=== PATIENT | female | born 1935 | race Caucasian/White ===

== ENCOUNTER 2023-12-20 11:43 | Emergency (ER) | payer MEDICARE ==
[~2023-12-20] VITALS: Ht 160 cm; Wt 43.6 kg
[~2023-12-20 11:43] MED LIST: AMOXICILLIN 50500 MG PO; ASPI325T6 PO; CLONAZEPAM PO; COZAAR 50MG50 MG/TAB PO; DUO-KAPS1 CAP PO; HYZAAR; KLONOPIN WAFE0.25 MG PO; LISINOPRIL/HCTZ1 TA1 PO; MIRTAZAPINE7.5 MG PO; OSCAL 500 TAB500 MG PO; PAXIL 20MG20 MG PO; TYLENOL 325MG325 MG PO; VESICARE 5MG5 MG PO; VITAMIN C500 MG PO
[2023-12-20 11:46] VITALS: TEMP 97.2
[2023-12-20 12:49] LABS: BASO % 0.2 % (0.0-2.0); EOS # 0.1 K/mm3 (0.0-0.7); EOS % 1.3 % (0.0-4.0); GRAN # 7.4 K/mm3 (1.4-6.5); GRAN % 75.2 % (42.2-75.2); LYMPH # 1.9 K/mm3 (1.2-3.4); LYMPH % 19.2 % (20.0-51.0); MEAN CELL VOLUME 96 fl (80.0-100.0); MEAN CORPUSCULAR HEMOGLOBIN 32 pg (27-31); MEAN CORPUSCULAR HGB CONC 34 g/dl (33.0-37.0); MEAN PLATELET VOLUME 9.2 fl (7.4-10.4); MONO # 0.4 K/mm3 (0.1-0.6); MONO % 3.8 % (1.7-9.3); PLATELET COUNT 248 K/mm3 (130-400); RED BLOOD COUNT 3.72 M/mm3 (4.10-5.30); REDCELL DISTRIBUTION WIDTH-CV 13.3 % (11.5-14.5)
[2023-12-20 12:50] LABS: HEMATOCRIT 35.8 % (37.0-47.0)
[2023-12-20 13:01] LABS: ALANINE AMINOTRANSFERASE < 6 U/L (0-55); ALBUMIN 3.1 g/dL (3.4-4.8); ALKALINE PHOSPHATASE 77 U/L (40-150); ANION GAP 10 mmol/L (7-16); AST,SGOT 13 U/L (5-34); BILIRUBIN,TOTAL 0.2 mg/dL (0.2-1.2); BLOOD UREA NITROGEN 28 mg/dL (10-20); CALCIUM 9.9 mg/dL (8.4-10.2); CHLORIDE 107 mEq/L (98-107); CREATININE, serum 1.16 mg/dL (0.57-1.11); GLUCOSE 126 mg/dL (70-99); POTASSIUM 3.3 mEq/L (3.5-4.5); SODIUM 139 mEq/L (136-145); TOTAL PROTEIN 6.3 g/dl (6.2-8.1)
[2023-12-20 13:08] LABS: TROPONIN-I < 0.010 ng/mL (0.00-0.033)
[2023-12-20 14:12] LABS: COLLECTION METHOD IN
[2023-12-20 14:17] LABS: PH 6.5 (5.0-8.5); URINE APPEARANCE CLEAR (CLEAR/HAZY); URINE BLOOD NEGATIVE (NEGATIVE); URINE COLOR YELLOW (YELLOW); URINE GLUCOSE NEGATIVE (NEGATIVE); URINE KETONE NEGATIVE (NEGATIVE); URINE NITRATE NEGATIVE (NEGATIVE); URINE PROTEIN(semi-quant) NEGATIVE (NEGATIVE)
[2023-12-20 15:53] VITALS: BP 136/75; PULSE 80
== END 2023-12-20 16:00 | disposition home or self-care (01) ==
LOC: COL.ER 11:43
PROVIDERS: Nurse Practitioner
DX: R41.82 Altered mental status, unspecified (principal)